=== PATIENT | male | born 1960 | race Caucasian/White ===

== ENCOUNTER → 2017-01-08 | Outpatient (CLI) | payer BC ==
[~2017-01-08] MED LIST: LISI10TA2 PO; MULT-974 PO
--- OUTSIDE RECORDS SUMMARY | 2017-01-08 07:19 | XMS REPORT | Continuity of Care Document ---
Author Author [facility] Organization [facility] Address Unknown Phone Unavailable Support Name Relationship Address Phone JAKE CARL MD Caregiver [address], [address] [place] [address] PATRICK KAN Next Of Kin [address] [place] [address] Insurance Providers Payer Name Policy Number Subscriber Name Relationship [employer] [id number] Christine Kan Self / Same As Patient Advance Directives Directive Response Recorded Date/Time Advance Directives No 08/17/14 9:38am Health Care Power of Boot And Saddle Repair Person No 08/17/14 9:38am Organ Donor Yes 08/17/14 9:38am Resuscitation Status Full Code 08/17/14 9:38am Problems No known problems or medical conditions. Medications Medication Dose Route Sig Days/Qty Instructions Order Date Discontinued Date Status Lisinopril 10 Mg PO DAILY 08/17/14 Active Multivitamin 1 Each PO DAILY 08/17/14 Active Social History Social History Problem Response Recorded Date/Time Recent Foreign Travel No 08/17/2014 8:48am Smoking Status Never a Smoker 08/17/2014 9:40am Query Response Start Date Stop Date Smoking Status Never a Smoker Hospital Discharge Instructions No hospital discharge instructions. Plan of Care No plan of care. Functional Status No functional status results. Allergies, Adverse Reactions, Alerts Allergen Type Severity Reaction Status Last Updated Amoxicillin ([id number]) Allergy Unknown Active 08/17/14 Immunizations Name Given Type Date of Influenza Vaccine 08/11/14 Historical Vital Signs Acute Vital Signs Vital Response Date/Time Temperature (Fahrenheit) 97.2 degrees F (97.6 - 99.5) Temperature (Calculated Celsius) 36.93250 degrees C (36.4 - 37.5) Temperature Source Tympanic Pulse Rate (adult) 54 bpm (60 - 90) Respiratory Rate 18 bpm (12 - 24) O2 Sat by Pulse Oximetry 95 % (88 - 100) Blood Pressure 133/90 mm Hg Pain Pain Intensity 0 Height (Feet) 5 feet Height (Inches) 10.00 inches Height (Calculated Centimeters) 177.923012 cm Weight (Pounds) 181 pounds Weight (Calculated Grams) 23249.220 gm Weight (Calculated Kilograms) 82.360560 kilograms Height 5 ft 10 in Weight 181 lb Body Mass Index 26.0 kg/m^2 Results No known relevant diagnostic tests, laboratory data and/or discharge summary. Procedures Procedure Status Date Provider(s) Diagnostic colonoscopy completed 08/17/14 JAKE CARL MD Encounters Encounter Location Date/Time Registered Clinic [facility] 08/12/14 10:32am
== END ==
LOC: CARD 07:16
PROVIDERS: ATTEND Internal Medicine
DX: R07.9 Chest pain, unspecified (principal); R06.02 Shortness of breath; I10 Essential (primary) hypertension
CPT/HCPCS: 93017

== ENCOUNTER → 2018-01-22 | Outpatient (CLI) | payer BC ==
--- NOTE | 2018-01-22 11:36 | Diagnostic Imaging Report ---
INDICATION: Hematuria. The right kidney measures 11.3 x 5.5 x 5.4 cm and the left kidney measures 12.4 x 7.2 x 6.4 cm. Cortical thickness and echogenicity is normal. No calculi are seen. There is no hydronephrosis. The urinary bladder is unremarkable. Bilateral ureteral jets are visualized. IMPRESSION: Unremarkable renal ultrasound. Dictated by: Dictated on workstation # [id number]
== END ==
LOC: RAD 09:53
PROVIDERS: ATTEND Urology
DX: R31.0 Gross hematuria (principal)
CPT/HCPCS: 76770

== ENCOUNTER 2018-10-22 05:48 | Outpatient (CLI) | payer BC ==
[~2018-10-22] VITALS: Ht 177.8 cm; Wt 83.9 kg
[2018-10-22] MEDS ORDERED: HYDR25TA4 PO (13:25)
[2018-10-22] MEDS ORDERED: IRBE300T18 PO (13:25)
== END 2018-10-22 13:29 | disposition home or self-care (01) ==
LOC: PREOP 05:48
PROVIDERS: ATTEND Internal Medicine
DX: Z01.818 Encounter for other preprocedural examination (principal)

== ENCOUNTER 2018-10-24 09:46 | Day surgery (SDC) | payer BC ==
--- NOTE | 2018-10-16 04:43 | HISTORY AND PHYSICAL ---
DATE OF SERVICE: COLONOSCOPY HISTORY AND PHYSICAL HISTORY OF PRESENT ILLNESS: The patient is a 58-year-old white male with a past history of colon polyps and deemed to be of higher than average risk as his mother was diagnosed with colon cancer at the age of 65. He reports that he has been feeling well and denies any bowel habit change. He has noted no blood in the stool, either melena or bright red blood and denies abdominal pain. PAST MEDICAL HISTORY: Significant for hyperlipidemia with no known history of coronary artery disease. He has a history of essential hypertension, well controlled. MEDICATIONS ON ADMISSION: Include: 1. Irbesartan 300 mg. 2. Hydrochlorothiazide 25 mg daily. PHYSICAL EXAMINATION: GENERAL: Revealed a well-appearing white male, in no acute distress. VITAL SIGNS: Weight was 192.4 pounds with a blood pressure of 128/84, heart rate was 72 and regular. HEENT: Examination was unremarkable. He has a Mallampati class 2 oropharyngeal configuration. CHEST: Clear to auscultation. CARDIOVASCULAR: Reveals regular rate and rhythm without murmur, S3 or S4. ABDOMEN: Soft, supple without mass, organomegaly or tenderness. EXTREMITIES: Reveal no cyanosis, clubbing or edema. ASSESSMENT AND PLAN: The patient was seen on 10/08/2018 and set up for colonoscopy on 10/24/2018. Prep instructions with the Snowden-prep kit were given and questions were answered. Job ID: [id number] DocumentID: [id number] Dictated Date: 10/14/2018 15:22:09 Procurement Coordinator Date: 10/14/2018 15:51:28 Dictated By: JAKE CARL MD
[~2018-10-24] VITALS: Ht 177.8 cm; Wt 83.9 kg
[~2018-10-24 09:46] MED LIST changes: +HYDR25TA4 PO; +IRBE300T18 PO
[2018-10-24] MEDS ORDERED: D5 LR IV SOLUTION 1,000 ML IV STA (10:03)
[2018-10-24] MEDS ORDERED: D5 LR IV SOLUTION 1,000 ML IV ONE (10:12)
[2018-10-24] MEDS ORDERED: fentaNYL INJECTION 100 MCG/2 ML AMP IVP ONE (10:15)
[2018-10-24] MEDS ORDERED: MIDAZOLAM 2 MG/2 ML (VERSED) VIAL IVP ONE (10:15)
--- NOTE | 2018-10-24 10:32 | Pre-Op Note & Conscious Sedat ---
Pre-Operative Progress Note H&P Reviewed The H&P was reviewed, patient examined and no changes noted. Date H&P Reviewed: Oct 24, 2018 Time H&P Reviewed: 10:32 Conscious Sedation Pre-Proced ASA Score 2 For ASA 3 and 4: Consider anesthesia and medical clearance. Also, for patients with a history of failed moderate sedation consider anesthesia. Airway Lungs Heart ASA score ASA 1: a normal healthy patient ASA 2: a patient with a mild systemic disease (mid diabetes, controlled hypertension, obesity ASA 3: a patient with a severe systemic disease that limits activity (angina , COPD, prior Myocardial infarction) ASA 4: a patient with an incapacitating disease that is a constant threat to life (CHF, renal failure) ASA 5: a moribund patient not expected to survive 24 hrs. (ruptured aneurysm) ASA 6: a declared brain patient whose organs are being harvested. For emergent operations, add the letter E after the classification Mallampati Classification Grade 2 Sedation Plan Analgesia, Amnesia, Plan communicated to team members, Discussed options with patient/fam, Discussed risks with patient/fam The patient is an appropriate candidate to undergo the planned procedure, sedation, and anesthesia. The patient immediately re-assessed prior to indication. JAKE CARL MD Oct 24, 2018 10:32
[2018-10-24 10:44] VITALS: BP 145/93
[2018-10-24] MEDS ORDERED: MIDAZOLAM 2 MG/2 ML (VERSED) VIAL ONE ×2 (10:49)
[2018-10-24] MEDS ORDERED: fentaNYL INJECTION 100 MCG/2 ML AMP ONE (10:49)
[2018-10-24] MEDS ORDERED: LIDOCAINE JELLY 2% 6 ML SYRINGE ONE (10:49)
[2018-10-24 11:45] VITALS: BP 113/59
[2018-10-24] MEDS ORDERED: LIDOCAINE JELLY 2% 6 ML SYRINGE TOP ONE (11:45)
[2018-10-24 12:06] VITALS: BP 132/80
[2018-10-24 12:10] VITALS: BP 132/80
--- NOTE | 2018-10-25 00:36 | OPERATIVE REPORT ---
DATE OF SERVICE: COLONOSCOPY SUMMARY INDICATION FOR THE PROCEDURE: Screening colonoscopy 5-year interval due to family history of colon cancer, grandmother on both sides of the family were diagnosed with colon cancer one in her 60s and one in her 70s. The patient's last colonoscopy was nearly 5 years ago. The patient was placed in the left lateral decubitus position. Prior to undergoing colonoscopy, digital rectal evaluation was performed. Anal sphincter tone was normal and the perianal reflex was intact. Prostate is mildly enlarged, nontender and anodular to digital inspection. No abnormalities noted on additional inspection of anal canal or distal rectal vault. The colonoscope was then inserted into the rectum under direct visualization advanced to the cecum. The cecum was identified by identification of the ileocecal valve and cecal strap. Photographic documentation was obtained. The quality prep was good. The patient tolerated the procedure well. FINDINGS: There was no evidence for internal or external hemorrhoids and the rectum was unremarkable. Present in the distal sigmoid colon was a diminutive 3 mm sessile polyp was photographed and biopsied and ablated with no subsequent blood loss with hot forceps. The remainder of the sigmoid colon was unremarkable. Descending colon, splenic flexure, transverse colon, hepatic flexure were unremarkable. Again noted was a 5 x 5 mm blush area in the distal ascending colon suggesting angiodysplasia with no evidence for bleeding and no evidence for blood in the colon on today's evaluation. This is unchanged from the patient's previous colonoscopy nearly 5 years ago. The remainder of the ascending colon and cecum were unremarkable with no other area of angiodysplasia or neoplasia being identified. One diminutive polyp was removed via hot forceps from the distal sigmoid colon with no other areas of neoplasia being identified on today's evaluation. Digital evaluation suggests mild BPH with no prostate nodularity. Again noted was a small area of likely angiodysplasia noted in the distal ascending colon. Because of this patient's family history with colon cancer in 2 grandparents on both sides of the family, we will be advocating repeat screening colonoscopy in 5 years provided that there is no surprise on histopathology report. Job ID: [id number] DocumentID: [id number] Dictated Date: 10/24/2018 12:06:08 Heel Stainer Date: 10/25/2018 00:36:02 Dictated By: JAKE CARL MD
== END 2018-10-24 12:10 | disposition home or self-care (01) ==
LOC: ENDO 09:46
PROVIDERS: ATTEND Internal Medicine
DX: Z12.11 Encounter for screening for malignant neoplasm of colon (principal); D12.5 Benign neoplasm of sigmoid colon; N40.0 Benign prostatic hyperplasia without lower urinary tract symptoms; Z80.0 Family history of malignant neoplasm of digestive organs; I10 Essential (primary) hypertension; E78.5 Hyperlipidemia, unspecified; Z79.899 Other long term (current) drug therapy